=== PATIENT | female | born 1965 | race Caucasian/White ===

== ENCOUNTER → 2020-02-24 10:53 | Outpatient (BNVA) | payer SELFPAY | PROVIDERS: PCP Internal Medicine; Visit Provider Physician Assistant | DX: B86 Scabies (principal) | CPT/HCPCS: 99203 ==

== ENCOUNTER 2023-06-17 10:32 | Outpatient (REF) | payer OTHER, SELFPAY | END 2023-06-17 10:33 | disposition home or self-care (01) | LOC: HO.SH 10:32 | PROVIDERS: PCP Nurse Practitioner Family; Visit Provider Nurse Practitioner Family | DX: Z01.118 Encounter for examination of ears and hearing with other abnormal findings (principal); H93.293 Other abnormal auditory perceptions, bilateral | CPT/HCPCS: 92552; 92556 ==